=== PATIENT | female | born 1995 | race Two or more races ===

== ENCOUNTER 2022-02-10 13:38 | Emergency (ER) | payer BC ==
[~2022-02-10] VITALS: Ht 170.2 cm; Wt 72.6 kg
[2022-02-10 14:10] VITALS: BP 125/81
[2022-02-10] MEDS ORDERED: IBUP-1957 PO (16:26)
--- NOTE | 2022-02-10 16:33 | NUR ---
Patient discharged to home in stable condition. Written and verbal after care instructions given. Patient verbalizes understanding of instruction.
== END 2022-02-10 16:33 | disposition home or self-care (01) ==
LOC: ER 14:24
DX: M25.571 Pain in right ankle and joints of right foot (principal); F41.9 Anxiety disorder, unspecified; F31.9 Bipolar disorder, unspecified; Z98.890 Other specified postprocedural states; W54.0XXA Bitten by dog, initial encounter; Y93.89 Activity, other specified; Y92.89 Other specified places as the place of occurrence of the external cause; Y99.8 Other external cause status
CPT/HCPCS: 73610-TC